=== PATIENT | male | born 1965 | race Two or more races ===

== ENCOUNTER 2019-03-04 19:57 | Emergency (ER) | payer MEDICAID ==
[~2019-03-04] VITALS: Ht 167.6 cm; Wt 74.8 kg
[~2019-03-04 19:57] MED LIST: UNOBMED
--- NOTE | 2019-03-04 20:10 | NUR ---
ED Nurse Note: RECIEVED PT BIBA FROM [facility], PT HAS NO COMPLAINT AND IS INAPPROPRIATE WITH RESPONSE, PT JUST MOANS AND GROANS, PT HAS STRONG ALCOHOL ODOR NOTED AND INCONTINENT OF URINE, UNABLE TO RETRIEVE PT NAME OR ANY INFO, NO SOB OR LABORED BREATHING, PT IS DIRTY AND DISCHEVELED IN APPEARANCE, WILL RESUME CARE ORDERED AND CLOSELY MONITOR.
[2019-03-04 20:19] LABS: HEMATOCRIT 43.4 % (42.0-52.0); HEMOGLOBIN 14.6 G/DL (14.2-18.0); MEAN CORPUSCULAR VOLUME 100 FL (80-99); PLATELET COUNT 98 K/UL (150-450); RED BLOOD COUNT 4.33 M/UL (4.70-6.10); RED CELL DISTRIBUTION WIDTH 13.1 % (11.6-14.8); WHITE BLOOD COUNT 5.6 K/UL (4.8-10.8)
[2019-03-04 20:28] LABS: ANION GAP 14 mmol/L (5-15); BLOOD UREA NITROGEN 7 mg/dL (7-18); CALCIUM 8.6 MG/DL (8.5-10.1); CARBON DIOXIDE 27 MMOL/L (21-32); CHLORIDE 107 MMOL/L (98-107); CREATININE 0.7 MG/DL (0.55-1.30); SODIUM 148 MMOL/L (136-145)
[2019-03-04 20:33] LABS: ALANINE AMINOTRANSFERASE 54 U/L (12-78); ALBUMIN 3.9 G/DL (3.4-5.0); ALBUMIN/GLOBULIN RATIO 0.8 (1.0-2.7); ALKALINE PHOSPHATASE 164 U/L (46-116); ASPARTATE AMINO TRANSFERASE 78 U/L (15-37); BILIRUBIN,TOTAL 0.3 MG/DL (0.2-1.0)
--- NOTE | 2019-03-04 21:02 | Emergency Room Report ---
History of Present Illness General Chief Complaint: Alcohol Intoxication Source: EMS Present Illness HPI 53-year-old male presents to the emergency department for altered mental status patient was found on the street significantly altered and brought to the ER by [place] fire. Patient responds to loud verbal stimuli as well as painful stimuli he is clinically inebriated. Unable to ambulate on his own. HPI and ROS are significantly limited due to patient altered mental status. Allergies: Coded Allergies: No Known Allergies (Unverified , 03/04/19) Patient History Limited by: other - Pt. is altered Past Medical History: see triage record, unable to obtain Past Surgical History: unable to obtain Pertinent Family History: unable to obtain Review of Systems All Other Systems: limited Physical Exam Vital Signs Date Time Temp Pulse Resp B/P (MAP) Pulse Ox O2 Delivery O2 Flow Rate FiO2 03/04/19 19:49 98.2 99 16 138/72 (94) 99 Room Air Sp02 EP Interpretation: reviewed, normal General Appearance: no apparent distress, alert, GCS 15, non-toxic Head: normocephalic, atraumatic Eyes: bilateral eye normal inspection, bilateral eye PERRL ENT: hearing grossly normal, normal voice Neck: full range of motion, no bony tend Respiratory: chest non-tender, lungs clear, normal breath sounds, no respiratory distress, no wheezing, speaking full sentences Cardiovascular #1: regular rate, rhythm, no edema Gastrointestinal: normal bowel sounds, non tender, soft, non-distended, no guarding Musculoskeletal: back normal, normal range of motion, non-tender Neurologic: alert, responsive, motor strength/tone normal, sensory intact, other - slurred speech, no facial droop. , grossly normal Psychiatric: other - Inebriated Skin: normal color, no rash, warm/dry, well hydrated Medical Decision Making PA Attestation Dr. Gomez is my supervising Physician whom patient management has been discussed with. Diagnostic Impression: Primary Impression: Acute alcoholic intoxication Qualified Codes: F10.920 - Alcohol use, unspecified with intoxication, uncomplicated ER Course 53-year-old male presents to the emergency department for altered mental status patient was found on the street significantly altered and brought to the ER by [place] fire. Patient responds to loud verbal stimuli as well as painful stimuli he is clinically inebriated. Unable to ambulate on his own. HPI and ROS are significantly limited due to patient altered mental status. Ddx considered but are not limited to ETOH, Trauma, Syncope, dementia, OD, acute head injury, Subdural hematoma just to name a few. Vital signs: are WNL, pt. is afebrile H&PE are most consistent with AMS, most likely secondary to ETOH abuse. ORDERS: -CBC: unremarkable -CMP: unremarkable -UDS: negative -ETOH: 587 -ASA/Tylenol: WNL -UDS: Negative - CT HEAD NO CONTRAST: WNL ED INTERVENTIONS: Observance while he detoxifies. Pt. was allowed to sleep/rest until he is clinically sober DISPOSITION: At this time pt. is signed out to on-coming night physician Dr. Gomez to continue observation until clinically sober and final disposition can be made. Labs Test 03/04/19 20:05 White Blood Count 5.6 K/UL (4.8-10.8) Red Blood Count 4.33 M/UL (4.70-6.10) Hemoglobin 14.6 G/DL (14.2-18.0) Hematocrit 43.4 % (42.0-52.0) Mean Corpuscular Volume 100 FL (80-99) Mean Corpuscular Hemoglobin 33.8 PG (27.0-31.0) Mean Corpuscular Hemoglobin Concent 33.7 G/DL (32.0-36.0) Red Cell Distribution Width 13.1 % (11.6-14.8) Platelet Count 98 K/UL (150-450) Mean Platelet Volume 8.5 FL (6.5-10.1) Neutrophils (%) (Auto) % (45.0-75.0) Lymphocytes (%) (Auto) % (20.0-45.0) Monocytes (%) (Auto) % (1.0-10.0) Eosinophils (%) (Auto) % (0.0-3.0) Basophils (%) (Auto) % (0.0-2.0) Differential Total Cells Counted 100 Neutrophils % (Manual) 49 % (45-75) Lymphocytes % (Manual) 42 % (20-45) Monocytes % (Manual) 7 % (1-10) Eosinophils % (Manual) 2 % (0-3) Basophils % (Manual) 0 % (0-2) Band Neutrophils 0 % (0-8) Platelet Estimate Decreased Platelet Morphology Normal Macrocytosis 1+ Sodium Level 148 MMOL/L (136-145) Potassium Level 4.0 MMOL/L (3.5-5.1) Chloride Level 107 MMOL/L (98-107) Carbon Dioxide Level 27 MMOL/L (21-32) Anion Gap 14 mmol/L (5-15) Blood Urea Nitrogen 7 mg/dL (7-18) Creatinine 0.7 MG/DL (0.55-1.30) Estimat Glomerular Filtration Rate > 60 mL/min (>60) Glucose Level 132 MG/DL (74-106) Calcium Level 8.6 MG/DL (8.5-10.1) Total Bilirubin 0.3 MG/DL (0.2-1.0) Aspartate Amino Transf (AST/SGOT) 78 U/L (15-37) Alanine Aminotransferase (ALT/SGPT) 54 U/L (12-78) Alkaline Phosphatase 164 U/L (46-116) Total Protein 9.1 G/DL (6.4-8.2) Albumin 3.9 G/DL (3.4-5.0) Globulin 5.2 g/dL Albumin/Globulin Ratio 0.8 (1.0-2.7) Salicylates Level 1.8 ug/mL (2.8-20) Acetaminophen Level < 2 MCG/ML (10-30) Serum Alcohol 587 mg/dL CT/MRI/US Diagnostic Results CT/MRI/US Diagnostic Results : Imaging Test Ordered: CT Head no contrast Impression " No evidence of acute fracture, hemorrhage, or intracranial process" per official radiology report- Please see report for specific details. Last Vital Signs Date Time Temp Pulse Resp B/P (MAP) Pulse Ox O2 Delivery O2 Flow Rate FiO2 03/04/19 19:49 98.2 99 16 138/72 (94) 99 Room Air Status: improved Signed Out To: Dr. Gomez Scripts Chlordiazepoxide (Chlordiazepoxide HCl) 25 Mg Capsule 25 MG ORAL THREE TIMES A DAY, #15 CAP 0 Refills Prov: Bassam Gomez MD 03/05/19 Patient Instructions: Alcohol Abuse and Nutrition Gina Norman Mar 04, 2019 21:02
[2019-03-04 21:35] VITALS: BP 131/67
[2019-03-05] VITALS: BP 119/79
--- NOTE | 2019-03-05 | NUR ---
ED Nurse Note: Pt continues to sleep, arouses to verbal stimuli but is very lethargic and drowsy, iv site patent, fluids completed, no changes or distress noted, will continue to monitor and discharge pt when sober.
--- NOTE | 2019-03-05 05:24 | NUR ---
ER Nurse Note: Pt asleep and calm; easily arousable. Pt cannot speak in complete sentences; makes grunting noises when aroused. VSS, no signs of distress. Unable to assess gait. SLIV on LT hand, patent. All safety measures met; will continue to monitor.
[2019-03-05 05:28] VITALS: BP 126/74
[2019-03-05] MEDS ORDERED: LIBRIUM25 MG ORAL (06:04)
[2019-03-05] MEDS ORDERED: chlordiazePOXIDE 25mg Cap ORAL ONE (06:15)
--- NOTE | 2019-03-05 06:20 | NUR ---
ER Nurse Note: Pt awake, steady gait, clear speech. VSS, no signs of distress. Urinal at bedside, no difficulty voiding. Appropriate clothing given. ERMD aware and declared medically cleared for discharge.
[2019-03-05 07:00] VITALS: BP 128/76
--- NOTE | 2019-03-05 07:00 | NUR ---
ER Nurse Note: Pt seen, treated, medically cleared by ERMD for discharge. Discharge instructions and prescriptions given with repeat verbalizaion by pt. Homeless discharge and education given; meal provided with clothes. Discharge location and bus tokens provided. Pt a&ox4, VSS, no signs of distresss. No pain stated. Pt walked with steady gait. Left via bus.
--- NOTE | 2019-03-05 08:52 | Diagnostic Imaging Report ---
Indication: Altered mental status Technique: Continuous helical CT scanning of the head was performed utilizing automated exposure control without intravenous contrast material. Axial and coronal reconstructions were obtained. Comparison: None CT dose: Total DLP 3894.62 mGycm; CTDI vol 70.38,70.38,70.38,70.38 mGy Findings: Note that evaluation is limited due to patient motion. This particularly degrades images through the skull base and subtle abnormalities may be missed. Within these limitations: There is no definite evidence of acute intracranial hemorrhage, mass effect or cortical edema. No shift of midline structures. The ventricles, cisterns and sulci appear within normal limits for stated age. Mastoid air cells are clear. There is mucosal thickening and opacification of the maxillary sinuses, left greater than right. No definite depressed calvarial fracture identified. IMPRESSION: Limited exam due to patient motion as above. Within these limitations: No definite evidence of acute intracranial hemorrhage, mass effect or cortical edema. The CT scanner at [facility] is accredited by the [employer] and the scans are performed using protocols designed to limit radiation exposure to as low as reasonably achievable to attain images of sufficient resolution adequate for diagnostic evaluation.
--- NOTE | 2019-03-08 06:46 | Emergency Room Report ---
History of Present Illness General Chief Complaint: Alcohol Intoxication Source: EMS Present Illness Allergies: Coded Allergies: No Known Allergies (Unverified , 03/04/19) Physical Exam Vital Signs Date Time Temp Pulse Resp B/P (MAP) Pulse Ox O2 Delivery O2 Flow Rate FiO2 03/04/19 19:49 98.2 99 16 138/72 (94) 99 Room Air Medical Decision Making Homeless Attestation I, The treating physician Dr. Gomez, have assessed and agrees that patient is medically stable for discharge to an outpatient disposition. Diagnostic Impression: Primary Impression: Acute alcoholic intoxication Qualified Codes: F10.929 - Alcohol use, unspecified with intoxication, unspecified ER Course Hospital Course 53-year-old M presents to ED with altered mental status. patient initially seen and evaluated by SIDDHARTH Norman; please see her note for full history and physical Clinical course Labs reviewed-electrolytes okay, no leukocytosis, hemoglobin/hematocrit stable, ETOH > 500 CT brain shows no acute pathology Observed in ED. Vitals stable. Patient is awake in a.m. clinically sober. Ambulating with steady gait. Concern for potential withdrawal. Given Librium here. Will discharge with Librium. Homeless checklist completed. Safe for discharge with close outpatient follow- up. Will provide referrals i. I feel this is a highly complex case requiring extensive working including EKG/Rhythm strip, Xray/CT/US, Blood/urine lab work, repeat exams while in ED, and administration of strong opiates/narcotics for pain control, admission to hospital or close patient follow up. Diagnosis - alcohol intoxication Stable and discharged to home with Rx Librium. Followup with PMD. Return to ED if symptoms recur or worsen Labs Test 03/04/19 05:10 03/04/19 20:05 Urine Opiates Screen Negative (NEGATIVE) Urine Barbiturates Screen Negative (NEGATIVE) Phencyclidine (PCP) Screen Negative (NEGATIVE) Urine Amphetamines Screen Negative (NEGATIVE) Urine Benzodiazepines Screen Negative (NEGATIVE) Urine Cocaine Screen Negative (NEGATIVE) Urine Marijuana (THC) Screen Negative (NEGATIVE) White Blood Count 5.6 K/UL (4.8-10.8) Red Blood Count 4.33 M/UL (4.70-6.10) Hemoglobin 14.6 G/DL (14.2-18.0) Hematocrit 43.4 % (42.0-52.0) Mean Corpuscular Volume 100 FL (80-99) Mean Corpuscular Hemoglobin 33.8 PG (27.0-31.0) Mean Corpuscular Hemoglobin Concent 33.7 G/DL (32.0-36.0) Red Cell Distribution Width 13.1 % (11.6-14.8) Platelet Count 98 K/UL (150-450) Mean Platelet Volume 8.5 FL (6.5-10.1) Neutrophils (%) (Auto) % (45.0-75.0) Lymphocytes (%) (Auto) % (20.0-45.0) Monocytes (%) (Auto) % (1.0-10.0) Eosinophils (%) (Auto) % (0.0-3.0) Basophils (%) (Auto) % (0.0-2.0) Differential Total Cells Counted 100 Neutrophils % (Manual) 49 % (45-75) Lymphocytes % (Manual) 42 % (20-45) Monocytes % (Manual) 7 % (1-10) Eosinophils % (Manual) 2 % (0-3) Basophils % (Manual) 0 % (0-2) Band Neutrophils 0 % (0-8) Platelet Estimate Decreased Platelet Morphology Normal Macrocytosis 1+ Sodium Level 148 MMOL/L (136-145) Potassium Level 4.0 MMOL/L (3.5-5.1) Chloride Level 107 MMOL/L (98-107) Carbon Dioxide Level 27 MMOL/L (21-32) Anion Gap 14 mmol/L (5-15) Blood Urea Nitrogen 7 mg/dL (7-18) Creatinine 0.7 MG/DL (0.55-1.30) Estimat Glomerular Filtration Rate > 60 mL/min (>60) Glucose Level 132 MG/DL (74-106) Calcium Level 8.6 MG/DL (8.5-10.1) Total Bilirubin 0.3 MG/DL (0.2-1.0) Aspartate Amino Transf (AST/SGOT) 78 U/L (15-37) Alanine Aminotransferase (ALT/SGPT) 54 U/L (12-78) Alkaline Phosphatase 164 U/L (46-116) Total Protein 9.1 G/DL (6.4-8.2) Albumin 3.9 G/DL (3.4-5.0) Globulin 5.2 g/dL Albumin/Globulin Ratio 0.8 (1.0-2.7) Salicylates Level 1.8 ug/mL (2.8-20) Acetaminophen Level < 2 MCG/ML (10-30) Serum Alcohol 587 mg/dL CT/MRI/US Diagnostic Results CT/MRI/US Diagnostic Results : Imaging Test Ordered: CT head Impression no acute process Last Vital Signs Date Time Temp Pulse Resp B/P (MAP) Pulse Ox O2 Delivery O2 Flow Rate FiO2 03/05/19 07:00 98.3 80 16 128/78 100 Room Air Status: improved Disposition: HOME, SELF-CARE Condition: Stable Scripts Chlordiazepoxide (Chlordiazepoxide HCl) 25 Mg Capsule 25 MG ORAL THREE TIMES A DAY, #15 CAP 0 Refills Prov: Bassam Gomez MD 03/05/19 Referrals: [facility] Patient Instructions: Alcohol Abuse and Nutrition Bassam Gomez MD Mar 08, 2019 06:46
== END 2019-03-05 07:00 | disposition home or self-care (01) ==
LOC: EDBD 19:57 → EMR 21:25
DX: F10.929 Alcohol use, unspecified with intoxication, unspecified (principal)
CPT/HCPCS: 36415; 70450; 80053; 80307; 80329; 85007; 85025; 96360; 99284